=== PATIENT | female | born 1975 | race African-American/Black ===

== ENCOUNTER 2022-02-14 01:19 | Emergency (ER) | payer OTHER ==
[~2022-02-14] VITALS: Ht 180.3 cm; Wt 100.0 kg
[2022-02-14] MEDS ORDERED: GABA-585 PO (02:04)
[2022-02-14] MEDS ORDERED: AMOX500C PO (02:04)
--- NOTE | 2022-02-14 02:06 | PHYS DOC ---
General Adult EDM: Chief Complaint: MULTIPLE COMPLAINTS HPI: HPI: History obtained from patient. Patient is a 46-year-old female with no reported PMH presents with chief complaint of tooth ache and tingling sensation of the bottom of her feet. She has had a toothache for the past 5 to 6 days. Notes th e pain is located in her left lower molar. Denies trauma or injury. Denies recent dental procedure for denies fevers. Denies purulent drainage to the mouth. Has been able to tolerate soft foods and liquids. Denies difficulty opening her mouth. Denies changes to her voice. Denies pain with swallowing. Also she has had pins and needle sensation to the plantar aspect of her feet bilaterally for over a year. Denies history of diabetes. Is able to ambulate. No other complaints. Review of Systems: Review of Systems: Constitutional: Denies fever or chills. [] Eyes: Denies change in visual acuity. [] HENT: Positive for tooth ache Respiratory: Denies cough or shortness of breath. [] Cardiovascular: Denies chest pain or edema. [] GI: Denies abdominal pain, nausea, vomiting, bloody stools or diarrhea. [] : Denies dysuria. [] Musculoskeletal: Denies back pain or joint pain. [] Integument: Denies rash. [] Neurologic: Denies headache, focal weakness or sensory changes. [] Endocrine: Denies polyuria or polydipsia. [] Lymphatic: Denies swollen glands. [] Psychiatric: Denies depression or anxiety. [] Heart Score: C/O Chest Pain: No Risk Factors: Risk Factors: DM, Current or recent (<one month) smoker, HTN, HLP, family history of CAD, obesity. Risk Scores: Score 0 - 3: 2.5% MACE over next 6 weeks - Discharge Home Score 4 - 6: 20.3% MACE over next 6 weeks - Admit for Clinical Observation Score 7 - 10: 72.7% MACE over next 6 weeks - Early Invasive Strategies Physical Exam: PE: Constitutional: Well developed, well nourished, no acute distress, non-toxic appearance. [] HENT: Multiple dental caries noted. No obvious apical abscess appreciated. Slight tenderness palpation to left lower molar. Normal phonation. No trismus. Tonsils without swelling or exudate. Uvula midline Eyes: PERRLA, EOMI, conjunctiva normal, no discharge. [] Neck: Normal range of motion, no tenderness, supple, no stridor. [] Cardiovascular:Heart rate regular rhythm, no murmur [] Lungs & Thorax: Bilateral breath sounds clear to auscultation [] Abdomen: Bowel sounds normal, soft, no tenderness, no masses, no pulsatile masses. [] Skin: Warm, dry, no erythema, no rash. [] Back: No tenderness, no CVA tenderness. [] Extremities: No tenderness, no cyanosis, no clubbing, ROM intact, no edema. [] Neurologic: Alert and oriented X 3, normal motor function, normal sensory function, no focal deficits noted. [] Psychologic: Affect normal, judgement normal, mood normal. [] Current Patient Data: Vital Signs: Vital Signs Date Time Temp Pulse Resp B/P (MAP) Pulse Ox O2 Delivery O2 Flow Rate FiO2 02/14/22 02:29 97.8 95 16 137/79 (98) 100 Room Air 97.8 Vital Signs Date Time Temp Pulse Resp B/P (MAP) Pulse Ox O2 Delivery O2 Flow Rate FiO2 02/14/22 02:29 97.8 95 16 137/79 (98) 100 Room Air 97.8 EKG: EKG: [] Radiology/Procedures: Radiology/Procedures: [] Course & Med Decision Making: Course & Med Decision Making Pertinent Labs and Imaging studies reviewed. (See chart for details) [] Patient is a well-appearing 46-year-old female presents with complaint of dental pain and tingling sensation of the plantar aspect of her feet bilaterally. Given she denies any trauma or injury to the feet no imaging will be obtained. Furthermore she states is been present for a year. She could be describing neuropathic leg pain. Forward dental pain she will be given a course of amoxicillin. Encourage follow-up with her dentist this week. Also instructed to follow-up with her primary care physician in the next 2 to 3 days. No advanced imaging indicated at this time. Return precautions were discussed and understood. Stable for discharge home Bell Disclaimer: Bell Disclaimer: This electronic medical record was generated, in whole or in part, using a voice recognition dictation system. Departure Departure Impression: Primary Impression: Tooth ache Additional Impression: Neuropathy Disposition: 01 HOME / SELF CARE / HOMELESS Condition: GOOD Patient Instructions: Dental Caries, Pain, Neuropathic Scripts Gabapentin (GABAPENTIN ) 100 Mg Capsule 100 MG PO TID for NEUROGENIC PAIN for 7 Days, #21 CAP Prov: TORITO ALMARAZ DO 02/14/22 Amoxicillin (AMOXICILLIN) 500 Mg Capsule 1 CAP PO BID for 10 Days, #20 CAP Prov: TORITO ALMARAZ DO 02/14/22 TORITO ALMARAZ DO Feb 14, 2022 02:06
[2022-02-14 02:30] VITALS: BP 137/79
[2022-02-14] MEDS: AMOXICILLIN 250 MG CAPSULE. PO ONE (02:50)
[2022-02-14] MEDS: GABAPENTIN 100 MG CAPSULE. PO ONE (02:50)
== END 2022-02-14 03:25 | disposition home or self-care (01) ==
LOC: ER 01:19
DX: K08.89 Other specified disorders of teeth and supporting structures (principal); G62.9 Polyneuropathy, unspecified
CPT/HCPCS: 99283